=== PATIENT | female | born 1960 | race Caucasian/White ===

== ENCOUNTER 2020-05-08 11:26 | Emergency (ER) | payer BC, OTHER ==
[~2020-05-08 11:26] MED LIST: COLACE100 MG PO; FLOMAX 0.4 MG0.4 MG PO; IBU800 MG PO; NORCO 7.5-3251 EACH PO; PERCOCET 7.5-31 EACH PO; VITAMIN D21250 MCG PO; ZOFRAN ODT 4 MG4 MG PO
[2020-05-08 12:55] LABS: HEMOGLOBIN 13.7 gm/dl (12.3-15.3); RED BLOOD COUNT 4.52 M/UL (4.00-5.10); WHITE BLOOD COUNT 4.3 K/UL (4.5-11.0)
[2020-05-08 13:12] LABS: BUN/CREATININE RATIO 13 (0-10)
== END 2020-05-08 17:00 | disposition home or self-care (01) ==
LOC: ER1 11:26
PROVIDERS: Physician Assistant Medical
DX: R07.89 Other chest pain (principal); Z90.49 Acquired absence of other specified parts of digestive tract; Z90.89 Acquired absence of other organs; F17.210 Nicotine dependence, cigarettes, uncomplicated
CPT/HCPCS: 71045; 80053; 82550; 82553; 83874; 83880; 84439; 84443; 84484; 85025; 85379; 85610; 93005; 99285